=== PATIENT | female | born 1960 | race Native Hawaiian/Other Pacific Islander ===

== ENCOUNTER 2018-03-07 10:58 | Emergency (ER) | payer OTHER ==
[2018-03-07 11:11] VITALS: BP 145/90; PULSE 85; RESP 20; TEMP 98.1; O2SAT 99
--- NOTE | 2018-03-07 11:46 | RAD ---
PROCEDURE: Right Foot Radiographs. HISTORY: foot pain COMPARISON: None. FINDINGS: BONES: No acute fracture. JOINTS: Normal. SOFT TISSUES: Normal. OTHER FINDINGS: Inferior plantar calcaneal spur. IMPRESSION: No demonstrated fracture or dislocation. Heel spur.
--- NOTE | 2018-03-07 11:47 | RAD ---
PROCEDURE: Radiographs of the right calcaneus/hindfoot. HISTORY: foot pain COMPARISON: None available. TECHNIQUE: Frontal and lateral radiographs of the calcaneus. FINDINGS: No fracture or joint dislocation. No focal lesion. Small calcaneal spur. IMPRESSION: No demonstrated fracture or dislocation. Small heel spur.
--- NOTE | 2018-03-07 11:56 | C.PDOC ---
History Of Present Illness Patient presents to ED with c/o right heel pain for 2 weeks. Patient is ambulating with pain and denies injury , numbness, weakness or any other complaints at this time. Time Seen by Provider: 03/07/18 11:18 Chief Complaint (Nursing): Lower Extremity Problem/Injury History Per: Patient History/Exam Limitations: no limitations Onset/Duration Of Symptoms: Days Current Symptoms Are (Timing): Still Present Past Medical History Reviewed: Historical Data, Nursing Documentation, Vital Signs Vital Signs: Last Vital Signs Temp 98.1 F 03/07/18 11:08 Pulse 85 03/07/18 11:08 Resp 20 03/07/18 11:08 BP 145/90 03/07/18 11:08 Pulse Ox 99 03/07/18 12:02 - Medical History PMH: No Chronic Diseases Surgical History: No Surg Hx Family History: States: No Known Family Hx - Social History Hx Alcohol Use: No Hx Substance Use: No - Immunization History Hx Tetanus Toxoid Vaccination: No Hx Influenza Vaccination: No Hx Pneumococcal Vaccination: No Review Of Systems Except As Marked, All Systems Reviewed And Found Negative. Musculoskeletal: Positive for: Foot Pain (heel) Physical Exam - Physical Exam Appears: Non-toxic, No Acute Distress Skin: Warm, Dry, No Rash Head: Atraumatic, Normacephalic Eye(s): bilateral: Normal Inspection Oral Mucosa: Moist Neck: Normal ROM, Supple Cardiovascular: Rhythm Regular Respiratory: Normal Breath Sounds, No Rales, No Rhonchi, No Wheezing Gastrointestinal/Abdominal: Soft, No Tenderness, No Guarding, No Rebound Extremity: Tenderness (to right calcanus ), Capillary Refill (<2 seconds), No Deformity Pulses: Right Dorsalis Pedis: Normal Neurological/Psych: Oriented x3, Normal Motor, Normal Sensation ED Course And Treatment O2 Sat by Pulse Oximetry: 99 (RA) Pulse Ox Interpretation: Normal Medical Decision Making Medical Decision Making: Assessment: Heel spur Progress: Xray showed heel spur Patient d/c with instructed f.u to podiatry clinic Disposition Counseled Patient/Family Regarding: Studies Performed, Diagnosis, Need For Followup, Rx Given - Disposition Referrals: Podiatry Clinic [Outside] Disposition Time: 11:56 Condition: STABLE Additional Instructions: follow up with podiatry in 2 days call to make an appointment take motrin or advil as needed for pain return to hospital if symptoms worsens or progress Prescriptions: Naproxen [Naprosyn] 500 mg PO BID PRN #16 tab PRN Reason: Pain, Moderate (4-7) Instructions: Heel Spurs (DC) Forms: General Discharge Instructions, [facility] (Nepali), Work Excuse - Clinical Impression Clinical Impression: Heel spur - Scribe Statement The provider has reviewed the documentation as recorded by the Hunteribemanuel Bautista All medical record entries made by the Hunteribemanuel were at my direction and personally dictated by me. I have reviewed the chart and agree that the record accurately reflects my personal performance of the history, physical exam, medical decision making, and the department course for this patient. I have also personally directed, reviewed, and agree with the discharge instructions and disposition.
== END 2018-03-07 12:01 | disposition home or self-care (01) ==
LOC: C.ER 10:58
DX: M77.31 Calcaneal spur, right foot (principal)